=== PATIENT | female | born 1995 | race Caucasian/White ===

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

== ENCOUNTER 2017-02-01 11:22 | Emergency (ER) | payer OTHER ==
[2017-02-01 11:35] VITALS: BP 143/79; PULSE 120; TEMP 98.3; BMI 26.5
[2017-02-01] MEDS ORDERED: IBUPROFEN 600 MG TABLET (FP) PO ONE ×2 (12:03→12:05)
--- NOTE | 2017-02-01 12:04 | PDOC ---
History of Present Illness - General Chief Complaint: Injury Stated Complaint: INJURY Time Seen by Provider: 02/01/17 11:56 - History of Present Illness Initial Comments: 02/01/17 12:03 CHIEF COMPLAINT: toe pain HISTORY OF PRESENT ILLNESS: 21 yo F with no PMH presents to ED with pain to right 5th toe s/p trauma. Patient reports that she was trying to open a door that felt stuck today and jammed her toe. ALLERGIES: No known drug allergies REVIEW OF SYSTEMS General/Constitutional: Denies fever or chills. Denies weakness, weight change. Musculoskeletal: Pain to 5th toe. Skin and breasts: Denies rash or easy bruising. PHYSICAL EXAM General Appearance: Well-appearing, appropriately dressed. No apparent distress. HEENT: EOMI, PERRLA Respiratory/Chest: Lungs CTAB. Cardiovascular: RRR. S1, S2. Vascular Pulses: Dorsalis-Pedis (R): 2+, Dorsalis-Pedis (L): 2+ Musculoskeletal/Extremities: Erythema and deformity of 5th R toe, TTP. Sensory discrimination intact. FROM of all other extremities, normal capillary refill. Pelvis Stable. No CVA tenderness. No tenderness to extremities, pedal edema, swelling, erythema or deformity. Integumentary: Appropriate color, dry, warm. 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 Fully oriented, alert. Appropriate mood/affect. Motor strength 5/5. No appreciable EOM palsy, facial droop or sensory deficit. Past History - Past Medical History Allergies/Adverse Reactions: Allergies Allergy/AdvReac Type Severity Reaction Status Date / Time No Known Allergies Allergy Verified 02/01/17 11:32 Home Medications: Ambulatory Orders Ibuprofen [Motrin -] 600 mg PO TID #21 tablet 02/01/17 Asthma: No Cancer: No Cardiac Disorders: No Diabetes: No HTN: No Seizures: No Thyroid Disease: No Other medical history: none - Immunization History Immunization Up to Date: Yes - Psycho/Social/Smoking Cessation Hx Anxiety: No Suicidal Ideation: No Smoking History: Never smoked Have you smoked in the past 12 months: No Information on smoking cessation initiated: No Hx Alcohol Use: No Drug/Substance Use Hx: No Substance Use Type: None Hx Substance Use Treatment: No *Physical Exam - Vital Signs Last Vital Signs Temp Pulse Resp BP Pulse Ox 98.3 F 120 H 18 143/79 100 06/25/17 11:33 02/01/17 11:33 02/01/17 11:33 02/01/17 11:33 02/01/17 11:33 ED Treatment Course - RADIOLOGY Radiology Studies Ordered: Category Date Time Status TOE(S) RIGHT [RAD] Stat Radiology 02/01/17 12:03 Ordered Medical Decision Making - Medical Decision Making 02/01/17 13:03 21 yo F with no PMH presents to ED with pain to right 5th toe s/p trauma. 600 mg ibuprofen po Toe ashley taped. Advised patient to f/u with orthopedics. *DC/Admit/Observation/Transfer Diagnosis at time of Disposition: Fracture - Discharge Dispostion Disposition: HOME Condition at time of disposition: Stable Admit: No - Prescriptions Prescriptions: Ibuprofen [Motrin -] 600 mg PO TID #21 tablet - Referrals Referrals: Benjamín Montilla MD [Staff Physician] - - Patient Instructions Printed Discharge Instructions: DI for Toe Fracture Additional Instructions: Please take medication as prescribed. Avoid walking on 5th toe to allow healing. Follow up with orthopedics in 1 week if pain persists. If you experience any loss of sensation to your toe, or any new or worsening symptoms, please return to the ER.
== END 2017-02-01 13:10 | disposition home or self-care (01) ==
LOC: JERFT 11:22
DX: S92.514A Nondisplaced fracture of proximal phalanx of right lesser toe(s), initial encounter for closed fracture (principal); W22.8XXA Striking against or struck by other objects, initial encounter; Y93.89 Activity, other specified; Y92.89 Other specified places as the place of occurrence of the external cause
CPT/HCPCS: 73660-TC; 99281-25